=== PATIENT | female | born 1945 | race Caucasian/White ===

== ENCOUNTER 2018-04-19 20:19 | Emergency (ER) | payer MEDICARE, BC ==
[2018-04-19 22:48] LABS: BASOPHILS 0.1 % (0-2); EOSINOPHILS 1.4 % (0-7); HEMATOCRIT 38.5 % (36.0-48.0); HEMOGLOBIN 13.5 g/dL (12-16); IMMATURE GRANULOCYTES 0.1 % (0-5); LYMPHOCYTES 16.4 % (15-50); MCH 32.1 pg (26.0-34.0); MCHC 35.1 g/dL (31.0-37.0); MCV 91.7 fL (80.0-100.0); MEAN PLATELET VOLUME 9.1 fL (7.4-10.4); MONOCYTES 8.8 % (2-11); NEUTROPHILS 73.2 % (40-80); PLATELET COUNT 215 10x3/uL (130-400); RDW 13.5 % (11.5-14.5); WBC 6.9 10x3/uL (4.8-10.8)
[2018-04-19 23:00] LABS: APPEARANCE CLEAR (CLEAR); BILIRUBIN NEGATIVE (NEGATIVE); COLOR DK YELLOW (YELLOW); GLUCOSE NEGATIVE (NEGATIVE); KETONE SMALL mg/dL (NEGATIVE); NITRITE NEGATIVE (NEGATIVE); PROTEIN TRACE mg/dL (NEGATIVE); UROBILINOGEN NORMAL (NORMAL)
[2018-04-19 23:02] LABS: BACTERIA FEW /hpf (NONE SEEN); MUCUS <1+ /lpf (NONE SEEN)
[2018-04-19 23:05] LABS: ALBUMIN 4.2 g/dL (3.4-5.0); ALKALINE PHOSPHATASE 79 U/L (46-116); ALT (SGPT) 21 U/L (10-68); AMYLASE - SERUM 110 U/L (25-115); BILIRUBIN - TOTAL 0.45 mg/dL (0.2-1.3); CALC OSMOLALITY 260 mosm/kg (275-300); CALCIUM 9.7 mg/dL (8.5-10.1); CARBON DIOXIDE 29.1 mmol/L (21.0-32.0); CHLORIDE - SERUM 92 mmol/L (98-107); CREATININE - SERUM 0.7 mg/dL (0.6-1.3); GLUCOSE 92 mg/dL (74-106); LIPASE 464 U/L (73-393); POTASSIUM - SERUM 4.3 mmol/L (3.5-5.1); PROTEIN - SERUM 7.7 g/dL (6.4-8.2); SODIUM 130 mmol/L (136-145); UREA NITROGEN 12 mg/dL (7-18); eGFR NON AFRICAN AMERICAN 87 mL/min (90-120)
== END 2018-04-19 23:29 | disposition home or self-care (01) ==
LOC: D.ER 20:19
PROVIDERS: Family Medicine
DX: K59.00 Constipation, unspecified (principal); R10.9 Unspecified abdominal pain; N39.0 Urinary tract infection, site not specified; F17.200 Nicotine dependence, unspecified, uncomplicated

== ENCOUNTER 2019-04-30 12:12 | Outpatient (CLI) | payer MEDICARE, BC ==
--- NOTE | ~2019-04-30 | HEMODYNAMI ---
PATIENT:BRITTNEY BETH MEDICAL RECORD: [id number] : 43 LOCATION:[facility] ADMISSION DATE: 04/30/19 Generatedon:04/30/201915:57 Patient name: BRITTNEY BETH Patient #: [id number] SSN: : 1945 Date of study: 04/30/2019 Page: Of Hemodynamic Procedure Report Patient Data Patient Demographics Procedure consent was obtained First Name: BRITTNEY Gender: Female Last Name: IGNACIA : 1945 Patient #: [id number] Age: 73 year(s) Race: Unknown Additional ID: [id number] Contact details Address: [address] [place] [address] [address] State: [place] City: [place] Zip code: [address] Past Medical History Allergies Allergen Reaction Date Comments Reported 04/30/2019 Admission Admission Data Admission Date: 04/30/2019 Admission Time: 12:12 Height (in.): 67 BSA: 1.57 (m2) Height (cm.): 170.18 BMI: 17.23 (kg/m2) Weight (lbs.): 110 Weight (kg.): 49.9 Procedure Procedure Types Cath Procedure Peripheral Cath Diagnostic Procedure 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 Peripheral Procedures Venography IVC/SVC IVC Filter Retreival Procedure Description Procedure Date Procedure Date: 04/30/2019 Procedure Start Time: 14:40 Procedure Staff Name Function Herb Maldonado MD Performing Physician Tangela Rivas RT Associate Marketing Manager Liliya Santiago RN Nurse Naz Davila RN Nurse Young Sharma RT Scrub Procedure Data Cath Procedure Fluoroscopy Diagnostic fluoroscopy Total fluoroscopy Time: time: 31.1 min 31.1 min Diagnostic fluoroscopy Total fluoroscopy dose: 817 dose: 817 mGy mGy Contrast Material Contrast Material Type Amount (ml) Isovue 300 70 Diagnostic catheters Device Type Used For End Catheter Placement DIAGNOSTIC MPA-2 5Fr catheter ([id number]) Merit Impress COBRA 2 5Fr 65CM catheter ([id number]) Procedure Medications Medication Administration Route Dosage Heparin Flush Bag added to field 2 bags (1000units/500ml NS) Lidocaine 1% added to field 20 Versed I.V. 1 mg Fentanyl I.V. 50 mcg Fentanyl I.V. 25 mcg Versed I.V. 0.5 mg Fentanyl I.V. 25 mcg Versed I.V. 0.5 mg Versed I.V. 0.5 mg Fentanyl I.V. 25 mcg Hemodynamics Rest BSA: 1.57 (m2) O2 Consumption: Estimated: 139.61 (ml/min) O2 Consumption indexed : Estimated:88.92 (ml/min/m) Heart Rate: 64 (bpm) Snapshots Pre Cath Intra NCS Post Cath Vital Signs Time Heart Resp SPO2 etCO2 NIBP (mmHg) Rhythm Pain Sedation Rate (ipm) (%) (mmHg) Status Level (bpm) 14:24:07 63 20 64 26.1 Measuring NSR 0 (11) 10(A) , No pain 14:25:31 64 32 25.4 Time NSR 0 (11) 10(A) Exceeded , No pain 14:28:56 57 25 100 14.2 152/68(92) NSR 0 (11) 10(A) , No pain 14:33:14 66 27 27.7 145/59(113) NSR 0 (11) 10(A) , No pain 14:37:28 57 20 100 28.4 143/61(82) NSR 0 (11) 10(A) , No pain 14:41:42 59 25 100 23.1 130/62(81) NSR 0 (11) 8(A) , No pain 14:45:50 57 17 99 0 133/67(87) NSR 0 (11) 8(A) , No pain 14:50:00 65 22 97 8.9 132/62(111) NSR 0 (11) 8(A) , No pain 14:54:10 55 15 99 0 128/64(84) NSR 0 (11) 8(A) , No pain 14:58:17 63 15 100 0 128/65(88) NSR 0 (11) 8(A) , No pain 15:02:25 69 13 100 25.4 121/64(78) NSR 0 (11) 8(A) , No pain 15:06:31 68 14 100 15.7 120/63(83) NSR 0 (11) 8(A) , No pain 15:10:37 66 15 100 22.4 121/63(79) NSR 0 (11) 8(A) , No pain 15:14:45 66 16 100 32.9 116/59(79) NSR 0 (11) 8(A) , No pain 15:18:48 65 16 100 20.9 115/61(78) NSR 0 (11) 8(A) , No pain 15:22:50 65 14 100 24.6 117/68(83) NSR 0 (11) 8(A) , No pain 15:26:56 69 18 100 35.2 110/60(82) NSR 0 (11) 8(A) , No pain 15:30:56 66 15 100 25.4 129/71(94) NSR 0 (11) 8(A) , No pain 15:35:03 66 16 100 25.4 131/67(91) NSR 0 (11) 8(A) , No pain 15:39:11 65 15 11.9 126/65(83) NSR 0 (11) 8(A) , No pain 15:44:10 65 16 78 32.9 Measuring NSR 0 (11) 8(A) , No pain 15:44:18 65 18 99 32.1 145/71(97) NSR 0 (11) 8(A) , No pain 15:48:30 64 21 30.7 142/68(89) NSR 0 (11) 8(A) , No pain 15:52:46 68 17 16.4 138/73(103) NSR 0 (11) 8(A) , No pain 15:56:54 64 23 31.4 154/74(103) NSR 0 (11) 8(A) , No pain Medications Time Medication Route Dose Verified Delivered Reason Notes Effec tiveness by by 14:27:15 Heparin Flush added 2 Herb Estevez used for Bag to bags Joel Maldonado procedure (1000units/500ml field MD CHOWDARY NS) 14:27:31 Lidocaine 1% added 20ml Herb Estevez used for to vial Joel Maldonado procedure field MD CHOWDARY 14:41:14 Versed I.V. 1 mg Herb Olearyi for Joel Santiago RN sedation 14:41:39 Fentanyl I.V. 50 Herb Liliya for mcg Joel Santiago RN sedation 14:49:49 Fentanyl I.V. 25 Herb Olearyi for mcg Joel Santiago RN sedation 14:49:59 Versed I.V. 0.5 Herb Olearyi for mg Joel Santiago RN sedation 14:59:09 Fentanyl I.V. 25 Herb Olearyi for mcg Joel Santiago RN sedation 14:59:17 Versed I.V. 0.5 Herb Liliya for mg Joel Santiago RN sedation 15:40:30 Versed I.V. 0.5 Herb Naz for mg Joel Davila RN sedation 15:40:54 Fentanyl I.V. 25 Herb Naz for mcg Joel Davila RN sedation Procedure Log Time Note 14:16:08 Time tracking: Regular hours (M-F 7:00 - 5:00) 14:16:43 Plan of Care:Hemodynamics will remain stable., Cardiac rhythm will remain stable., Comfort level will be maintained., Respiratory function will remain adequate., Patient/ family verbilizes understanding of procedure., Procedure tolerated without complication., Recovers from procedure without complications.. 14:17:12 Patient received from Outpatients to IR Alert and oriented. Tansferred to table in Supine position. 14:17:17 Correct patient and procedure confirmed by team. 14:17:21 Signed procedure consent form obtained from patient. 14:17:27 H&P Date Dictated: 04/30/2019 Within 30 days and on chart.. 14:17:32 Pre-procedure instructions explained to patient. 14:17:33 Pre-op teaching completed and patient verbalized understanding. 14:17:37 Family in waiting room. 14:17:41 Patient NPO since Midnight. 14:18:23 Patient allergic to Septra, Tromethamine, prednisone 14:18:55 Is the patient allergic to Iodine/contrast media? No. 14:19:07 Is patient on blood thinner?Yes 14:19:17 ACC The patient was administered the following blood thiners within the last 24 hours: ACCAspirin 14:19:21 Patient diabetic? No. 14:19:22 - 14:19:24 ----Pre-sedation anethsthesia assessment.---- 14:19:28 Previous problem with sedation/anesthesia? No ? 14:19:32 Snore? No 14:19:35 Sleep apnea? No 14:19:37 Deviated septum? No 14:19:40 Opens mouth fully? Yes 14:19:42 Sticks out tongue? Yes 14:19:47 Airway obstruction? Yes copd 14:19:52 Dentures? No ? 14:20:48 IV patent on arrival in Right upper arm with D5/.45%NaCl at [facility]. 14:21:03 Right neck area was prepped with chlora-prep and draped in sterile fashion 14:21:10 - 14:21:20 Use device set IR Diagnostic 14:21:22 Tegaderm 4 x 4 ([id number]) opened to sterile field. 14:21:24 Sterile Angiographic Pack opened to sterile field. 14:21:25 Bag Decanter () opened to sterile field. 14:22:17 ECG and BP/O2 sat monitors applied to patient. 14:22:18 Vital chart was started 14:22:21 Baseline sample Acquired. 14:22:24 Full Disclosure recording started 14:22:26 - 14:23:30 BENTSON 145cm wire ([id number]) opened to sterile field. 14:23:38 Micropuncture VSI 4FR kit opened to sterile field. 14:27:15 Heparin Flush Bag (1000units/500ml NS) 2 bags added to field was administered by Herb Maldonado MD; used for procedure; 14:27:31 Lidocaine 1% 20ml vial added to field was administered by Herb pollock MD; used for procedure; 14:38:57 Physician arrived 14:39:10 --------ALL STOP TIME OUT------ 14:39:11 Final Timeout: patient, procedure, and site verified with staff and physician. All members of the team are in agreement. 14:39:52 Patient Height : 67 inches 14:39:55 Patient Weight : 110 lbs 14:40:02 Procedure started. 14:40:13 Local anesthetic to right IJ vein with Lidocaine 1% by Herb Maldonado MD.INITIAL ACCESS ONLY 14:41:14 Versed 1 mg I.V. was administered by Liliya Santiago RN; for sedation; 14:41:39 Fentanyl 50 mcg I.V. was administered by Liliya Santiago RN; for sedation; 14:41:52 COOK 12FR 45 CM ANLO SHEATH opened to sterile field. 14:46:38 COOK 12FR 45 CM ANLO SHEATH opened to sterile field. 14:49:49 Fentanyl 25 mcg I.V. was administered by Liliya Santiago RN; for sedation; 14:49:59 Versed 0.5 mg I.V. was administered by Liliya Santiago RN; for sedation; 14:50:33 DILATOR, VESSEL 10/20 opened to sterile field. 14:59:09 Fentanyl 25 mcg I.V. was administered by Liliya Santiago RN; for sedation; 14:59:17 Versed 0.5 mg I.V. was administered by Liliya Santiago RN; for sedation; 15:09:18 SNARE GOOSENECK 20MM LOOP 120C opened to sterile field. 15:14:53 A DIAGNOSTIC MPA-2 5Fr catheter ([id number]) was advanced over the wire an d used for . 15:20:39 A Merit Impress COBRA 2 5Fr 65CM catheter ([id number]) was advanced over the wire and used for . 15:40:30 Versed 0.5 mg I.V. was administered by Naz Davila RN; for sedation; 15:40:54 Fentanyl 25 mcg I.V. was administered by Naz Davila RN; for sedation ; 15:51:13 Procedure ended.(Physican Out) 15:52:25 Fluoroscopy time 31.10 minutes. 15:52:36 Fluoroscopy dose: 817 mGy 15:52:36 Flurop Dose total: 817 15:52:45 Contrast amount:Isovue 300 70ml. 15:53:02 Procedure and supply charges have been captured, reviewed, submitted an d are correct. 15:54:38 Report given to Outpatients. 15:57:13 Vital chart was stopped Device Usage Item Name Manufacture Quantity Catalog Hospital Part Current Minima l Lot# / Number Charge Number Stock Stock Serial# Code Tegaderm 4 x 3M 1 1626W [id number] [id number] 5 4 (1626W) Sterile Cardinal 1 [id number] 737951 768759 5 Angiographic Health Pack Bag Decanter Microtek 1 2001S 951166 45688 [id number] 5 (2001S) [employer] BENTSON 145cm [employer] 1 [id number] 425229 529907 5 wire (V20203) Micropuncture VSI VASCULAR 1 7266V 757499 531624 5 VSI 4FR kit SOLUTIONS COOK 12FR 45 [employer] 1 V95509 127222 205971 068534 5 [id number] CM ANLO SHEATH DILATOR, [employer] 1 F76575 962758 16406 141683 5 VESSEL 10/20 SNARE Medtronic 1 [id number] 382007 665884 118629 5 GOOSENECK 20MM LOOP 120C DIAGNOSTIC Cardinal 1 [id number] 736594 376378 677338 5 MPA-2 5Fr Health catheter ([id number]) Merit Impress Merit 1 [id number] 713988 959796 272307 5 COBRA 2 5Fr Medical 65CM catheter ([id number]) Signature Audit [place] Stage Time Signature Unsigned Intra-Procedure 04/30/2019 Tangela Rivas 3:57:09 PM RT(R) [id number] [place] [address]
[2019-04-30 12:43] LABS: BASOPHILS 0.4 % (0-2); EOSINOPHILS 1.5 % (0-7); HEMATOCRIT 36.2 % (36.0-48.0); HEMOGLOBIN 12.8 g/dL (12-16); IMMATURE GRANULOCYTES 0.6 % (0-5); LYMPHOCYTES 11.9 % (15-50); MCH 34.8 pg (26.0-34.0); MCHC 35.4 g/dL (31.0-37.0); MCV 98.4 fL (80.0-100.0); MEAN PLATELET VOLUME 9.7 fL (7.4-10.4); MONOCYTES 0 % (2-11); NEUTROPHILS 85.6 % (40-80); RBC 3.68 10x6/uL (4.00-5.40); RDW 14.4 % (11.5-14.5); WBC 5.3 10x3/uL (4.8-10.8)
[2019-04-30 12:56] LABS: CALC OSMOLALITY 264 mosm/kg (275-300); CALCIUM 9.9 mg/dL (8.5-10.1); CARBON DIOXIDE 31.3 mmol/L (21.0-32.0); CHLORIDE - SERUM 94 mmol/L (98-107); CREATININE - SERUM 0.7 mg/dL (0.6-1.3); GLUCOSE 93 mg/dL (74-106); POTASSIUM - SERUM 4.3 mmol/L (3.5-5.1); SODIUM 132 mmol/L (136-145); UREA NITROGEN 13 mg/dL (7-18); eGFR NON AFRICAN AMERICAN 87 mL/min (90-120)
[2019-04-30 13:00] LABS: APTT 25.3 SECONDS (22.8-39.4); INR 0.98 (0.85-1.17); PROTIME 12.5 SECONDS (11.6-15.0)
[2019-04-30 13:05] LABS: PLATELET COUNT 123 10x3/uL (130-400)
[2019-04-30] MEDS ORDERED: SYNTHROID50 MCG PO (13:40)
[2019-04-30] MEDS ORDERED: METOPROLOL TART50 MG PO (13:40)
[2019-04-30] MEDS ORDERED: CLARITIN 10 MG10 MG PO (13:40)
[2019-04-30] MEDS ORDERED: ZANTAC300 MG PO (13:40)
[2019-04-30] MEDS ORDERED: ASPIRIN325 MG PO (13:41)
[2019-04-30 13:58] VITALS: BP 118/61; BMI 17.2
--- NOTE | 2019-04-30 17:41 | NUR ---
1745 RECIEVED A FINGER TRAY WITH FRUIT REQUESTED AND COFFEE WITH MILK. PILSE OX ON FOREHEAD . SAT 100% DR ABREU. HERE TO SEE PT AND INSTRUCTIONS GIVEN.
--- NOTE | 2019-04-30 18:30 | NUR ---
1750 IV REMOVED AND ASSISTED TO GETTING DRESSED. PT THIN AND ABLE TO WALK. GAIT UNSTEADY. 1805 D/C HOME IN W/C
== END 2019-04-30 18:05 | disposition home or self-care (01) ==
LOC: D.SP 12:12 → D.RAD 14:30 → D.SP 14:30
PROVIDERS: ATTEND Radiology Diagnostic Radiology
DX: Z45.89 Encounter for adjustment and management of other implanted devices (principal); Z01.812 Encounter for preprocedural laboratory examination

== ENCOUNTER → 2020-07-07 15:00 | Outpatient (CLI) | payer MEDICARE, BC ==
[~2020-07-07 15:00] MED LIST: ASPIRIN325 MG PO; CLARITIN 10 MG10 MG PO; METOPROLOL TART50 MG PO; SYNTHROID50 MCG PO; ZANTAC300 MG PO
[2020-07-08 01:18] LABS: BASOPHILS 0.6 % (0-2); EOSINOPHILS 2.5 % (0-7); HEMATOCRIT 39.2 % (36.0-48.0); HEMOGLOBIN 13.3 g/dL (12-16); IMMATURE GRANULOCYTES 0.2 % (0-5); MCH 34.5 pg (26.0-34.0); MCHC 33.9 g/dL (31.0-37.0); MCV 101.6 fL (80.0-100.0); MEAN PLATELET VOLUME 9.8 fL (7.4-10.4); MONOCYTES 11.1 % (2-11); NEUTROPHILS 70.6 % (40-80); PLATELET COUNT 166 10x3/uL (130-400); RBC 3.86 10x6/uL (4.00-5.40); RDW 15.7 % (11.5-14.5); WBC 4.9 10x3/uL (4.8-10.8)
[2020-07-08 01:51] LABS: ALBUMIN 3.8 g/dL (3.4-5.0); ALKALINE PHOSPHATASE 130 U/L (30-120); ALT (SGPT) 29 U/L (10-68); CALC OSMOLALITY 269 mosm/kg (275-300); CALCIUM 9.1 mg/dL (8.5-10.1); CARBON DIOXIDE 31.6 mmol/L (21.0-32.0); CHLORIDE - SERUM 97 mmol/L (98-107); CREATININE - SERUM 0.5 mg/dL (0.6-1.3); FERRITIN 625 ng/mL (3-244); POTASSIUM - SERUM 4.1 mmol/L (3.5-5.1); PROTEIN - SERUM 6.9 g/dL (6.4-8.2); SODIUM 136 mmol/L (136-145); UREA NITROGEN 14 mg/dL (7-18); eGFR NON AFRICAN AMERICAN > 90 mL/min (90-120)
[2020-07-08 01:54] LABS: GLUCOSE 41 mg/dL (74-106)
== END | disposition home or self-care (01) ==
LOC: D.LABREF 15:00
PROVIDERS: ATTEND Internal Medicine
DX: C85.90 Non-Hodgkin lymphoma, unspecified, unspecified site (principal)